=== PATIENT | female | born 1950 | race Caucasian/White ===

== ENCOUNTER 2023-03-28 12:08 | Emergency (ER) | payer MEDICARE, BC, SELFPAY ==
[2023-03-28 12:13] VITALS: BP 154/74; PULSE 66; RESP 18; TEMP 36.6; O2SAT 97; BMI 20.7
--- NOTE | 2023-03-28 12:17 | DI.RAD.S_ITS ---
PROCEDURE: XR ELBOW LT 2V INDICATIONS: fall, L elbow/L shoulder pain TECHNIQUE: 2 views of the elbow were acquired. COMPARISON: None. FINDINGS: Bones: No fractures or dislocations. No suspicious bony lesions. Soft tissues: No elbow joint effusion. No suspicious soft tissue calcifications. IMPRESSION: No definite acute elbow fracture or dislocation. No significant joint effusion. If patient's symptoms persists, follow-up study in 10-14 days can be done for evaluation of occult fracture. Dictated by: Vincent Biggs M.D. on 03/28/2023 at 12:54 Approved by: Vincent Biggs M.D. on 03/28/2023 at 12:56
--- NOTE | 2023-03-28 12:18 | DI.RAD.S_ITS ---
PROCEDURE: XR SHOULDER LT MIN 2V INDICATIONS: Fall, L elbow/L shoulder pain TECHNIQUE: 2 views of the shoulder were acquired. COMPARISON: None. FINDINGS: Bones: Acute comminuted fracture involving surgical neck/proximal shaft of left humerus is seen with slight superior migration of proximal humeral shaft in relation to humeral head and fracture line extending to involve both greater and lesser tuberosities. No other fracture or dislocation is seen. Acromioclavicular joint and glenohumeral joint osteoarthritic changes. No suspicious bony lesions. Visualized ribs appear intact. Soft tissues: No suspicious soft tissue calcifications. IMPRESSION: Acute comminuted and slightly impacted fracture involving left proximal humeral shaft/surgical neck as above. Dictated by: Vincent Biggs M.D. on 03/28/2023 at 12:56 Approved by: Vincent Biggs M.D. on 03/28/2023 at 12:57
--- NOTE | 2023-03-28 12:30 | ED.UPPEXIN ---
HPI - Extremity Injury (Upper) General Chief Complaint: Extremity Injury, Upper Stated Complaint: Fell hit L elbow jammed shoulder Time Seen by Provider: 03/28/23 12:18 Source: patient Mode of arrival: Ambulatory History of Present Illness HPI narrative: 72yoF presents for L shoulder pain. Patient was walking down a slippery dock when she slipped, landing on her L elbow. Denies hitting head, denies LOC. Patient reporting L shoulder pain. Decreased ROM due to pain. Denies numbness, weakness Related Data Previous Rx's Medication Instructions Recorded methocarbamol 500 mg tablet 500 mg PO QID #30 tabs 03/28/23 oxycodone-acetaminophen 5 mg-325 1 tab PO Q6H PRN pain #14 tabs 03/28/23 mg tablet (Percocet) Allergies Allergy/AdvReac Type Severity Reaction Status Date / Time No Known Drug Allergies Allergy Verified 03/28/23 12:17 Review of Systems Review of Systems Narrative: CONSTITUTIONAL- Denies: fever, chills, fatigue HEENT- Denies: sore throat, nosebleed, vision changes RESPIRATORY- Denies: shortness of breath, cough, wheezing CARDIAC- Denies: chest pain, edema, orthopnea GI- Denies: abdominal pain, nausea, vomiting, constipation, diarrhea - Denies: frequency, dysuria, hematuria, flank pain MSK-reports: Joint pain Denies: extremity swelling, joint swelling SKIN- Denies: rash, itching, burn, swelling NEUROLOGICAL- Denies: headache, numbness, weakness, dizziness PSYCHIATRIC- Denies: anxiety, depression, suicidal ideation, homicidal ideation Patient History Social History Smoking Status: Never smoker Smoking Status: Never smoker alcohol intake frequency: a few times a week Substance Use Type: does not use Exam Initial Vital Signs Initial Vital Signs: Vital Signs Temperature 97.9 F 03/28/23 12:13 Pulse Rate 66 03/28/23 12:13 Respiratory Rate 18 03/28/23 12:13 Blood Pressure 154/74 H 03/28/23 12:13 Pulse Oximetry 97 03/28/23 12:13 Oxygen Delivery Method Room Air 03/28/23 12:13 Const: Awake, alert, no acute distress, nontoxic appearing Eyes: PERRL, EOMI, conjunctiva normal ENT: Atraumatic, dentition normal, mucous membranes moist Cardiac: regular rate, regular rhythm RESP: unlabored, clear bilaterally, no wheezing GI: Atraumatic, soft, nontender, nondistended, no rebound, no guarding MSK: no deformity, TTP L shoulder joint, decreased ROM due to pain, 2+ pulses bilaterally, 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 No obvious deformities to suggest dislocation. We will obtain x-rays and give pain medications. Orders Ordered: Discontinued Medications Oxycodone HCl (Oxycodone Ir 5 Mg Tablet) 5 mg PO NOW ONE Stop: 03/28/23 12:31 Last Admin: 03/28/23 12:35 Dose: 5 mg Documented By: NITIN Reevaluation(s) Reevaluation #1: X-rays show proximal humerus fracture. Elbow x-rays unremarkable. Patient and informed of x-ray results, placed in sling for comfort. Pain medications sent to pharmacy of choice. Patient states that she is from out of town and will follow up with an orthopedic surgeon from her town. Patient cautioned against potential sedating and constipating effects of opiate medications. Discharged with in stable condition. Vital Signs Vital signs: Vital Signs - 8 hr 03/28/23 12:13 Temperature 97.9 F Pulse Rate 66 Respiratory Rate 18 Blood Pressure 154/74 H Pulse Oximetry 97 Oxygen Delivery Method Room Air MDM - Extremity Injury (Upper) Imaging Data PROCEDURE:? XR SHOULDER LT MIN 2V ? INDICATIONS:? Fall, L elbow/L shoulder pain ? TECHNIQUE:? 2 views of the shoulder were acquired.? ? COMPARISON:? None. ? FINDINGS:? ? Bones:? Acute comminuted fracture involving surgical neck/proximal shaft of left humerus is seen with slight superior migration of proximal humeral shaft in relation to humeral head and fracture line extending to involve both greater and lesser tuberosities.? No other fracture or dislocation is seen.? Acromioclavicular joint and glenohumeral joint osteoarthritic changes.? No suspicious bony lesions.? Visualized ribs appear intact.? ? Soft tissues:? No suspicious soft tissue calcifications.? ? IMPRESSION:? Acute comminuted and slightly impacted fracture involving left proximal humeral shaft/surgical neck as above.? ?: My Impression: HUMERUS FRACTURE Discharge Plan Departure Patient Disposition: Home Clinical Impression: Fracture closed, humerus Instructions: DI for Shoulder Fracture Activity Restrictions/Additional Instructions: BE CAREFUL TAKING THESE MEDICATIONS THEY CAN CAUSE DROWSINESS AND INCREASED FALLS. MAKE SURE TO FOLLOW UP WITH AN ORTHOPEDIC (BONE AND JOINT) SURGEON Prescriptions: New oxycodone-acetaminophen [Percocet] 5-325 mg tablet 1 tab PO Q6H PRN (Reason: pain) Qty: 14 0RF methocarbamol 500 mg tablet 500 mg PO QID Qty: 30 0RF Stand Alone Forms: Patient Portal/API
[2023-03-28] MEDS: OXYCODONE IR 5 MG TABLET PO (12:35)
== END 2023-03-28 13:32 | disposition home or self-care (01) ==
PROVIDERS: Emergency Provider Emergency Medicine
DX: S42.202A Unspecified fracture of upper end of left humerus, initial encounter for closed fracture (principal); W01.0XXA Fall on same level from slipping, tripping and stumbling without subsequent striking against object, initial encounter
CPT/HCPCS: 73030; 73070; 99283; 99284